=== PATIENT | male | born 1975 | race American Indian/Alaskan Native ===

== ENCOUNTER 2018-01-31 06:49 | Inpatient (IN) | payer OTHER ==
[2018-01-31] MEDS ORDERED: Ketorolac 30 MG/ML SDV IVPUSH ONE (08:30)
[2018-01-31] MEDS ORDERED: Sodium Chloride 0.9% 1,000 ML IV ONE (08:30)
--- NOTE | 2018-01-31 08:30 | EDM.PDOC ---
ED HPI GENERAL MEDICAL PROBLEM - General Chief Complaint: Abdominal Pain Stated Complaint: GALLBLADDER Time Seen by Provider: 01/31/18 08:17 - History of Present Illness INITIAL COMMENTS - FREE TEXT/NARRATIVE: HISTORY AND PHYSICAL: History of present illness: Patient's 43-year-old male presents with concern of right upper quadrant abdominal pain off and on for last several weeks worse with eating he was seen at another institution that had no ultrasound capabilities and was sent here. He 's had associated nausea no vomiting denies fever chills denies trauma or other concern Review of systems: As per history of present illness and below otherwise all systems reviewed and negative. Past medical history: As per history of present illness and as reviewed below otherwise noncontributory. Surgical history: As per history of present illness and as reviewed below otherwise noncontributory. Social history: No reported history of drug or alcohol abuse. Family history: As per history of present illness and as reviewed below otherwise noncontributory. Physical exam: HEENT: Atraumatic, normocephalic, pupils reactive, negative for conjunctival pallor or scleral icterus, mucous membranes moist, throat clear, neck supple, nontender, trachea midline. Lungs: Clear to auscultation, breath sounds equal bilaterally, chest nontender. Heart: S1S2, regular, negative for clicks, rubs, or JVD. Abdomen: Soft, nondistended, tenderness in the right upper quadrant to deep palpation with voluntary guarding no rebound. Negative for masses or hepatosplenomegaly. Negative for costovertebral tenderness. Pelvis: Stable nontender. Genitourinary: Deferred. Rectal: Deferred. Extremities: Atraumatic, negative for cords or calf pain. Neurovascular unremarkable. Neuro: Awake, alert, oriented. Cranial nerves II through XII unremarkable. Cerebellum unremarkable. Motor and sensory unremarkable throughout. Exam nonfocal. Diagnostics: CBC and chem were done prior institution and remarkable for a elevated white blood cell count of 15 chemistries were unremarkable UA was unremarkable liver function tests were normal Therapeutics: Normal saline 1 L bolus Toradol 30 mg IV Impression: #1 right upper quadrant abdominal pain etiology be determined Definitive disposition and diagnosis as appropriate pending reevaluation and review of above. right sided abd Pain Score (Numeric/FACES): 8 - Related Data Allergies Allergy/AdvReac Type Severity Reaction Status Date / Time No Known Allergies Allergy Verified 01/31/18 07:04 Home Meds: Home Meds . [No Known Home Meds] 01/31/18 [History] Past Medical History - Infectious Disease History Infectious Disease History: Reports: None - Past Surgical History GI Surgical History: Reports: Appendectomy Social & Family History - Family History Family Medical History: Noncontributory - Tobacco Use Smoking Status *Q: Never Smoker - Caffeine Use Caffeine Use: Reports: Coffee - Recreational Drug Use Recreational Drug Use: No ED ROS GENERAL - Review of Systems Review Of Systems: ROS reveals no pertinent complaints other than HPI. ED EXAM, GENERAL - Physical Exam Exam: See Below (See dictated) Course - Vital Signs Last Recorded V/S: Last Vital Signs Temp 36.2 C 01/31/18 07:05 Pulse 90 01/31/18 07:05 Resp 18 01/31/18 07:05 BP 139/88 01/31/18 07:05 Pulse Ox 98 01/31/18 07:05 - Orders/Labs/Meds Orders: Active Orders 24 hr Category Date Time Status CULTURE BLOOD [BC] Stat Lab 01/31/18 08:38 Ordered CULTURE BLOOD [BC] Stat Lab 01/31/18 08:38 Ordered Sodium Chloride 0.9% [Normal Saline] 1,000 ml Med 01/31/18 08:30 Active IV .Bolus cefOXitin [Mefoxin] 1 gm Med 01/31/18 08:38 Active Sodium Chloride 0.9% [Normal Saline] 50 ml IV ONETIME metroNIDAZOLE/Normal Saline [Flagyl 500 MG in NS 100 ML Med 01/31/18 08:38 Active ] 500 mg Premix Bag 1 bag IV ONETIME Blood Culture x2 Reflex Set [OM.PC] Stat Oth 01/31/18 08:38 Ordered Medication Orders Sodium Chloride (Normal Saline) 1,000 mls @ 999 mls/hr IV .Bolus ONE Stop: 01/31/18 09:30 Last Admin: 01/31/18 08:40 Dose: 999 mls/hr Cefoxitin Sodium 1 gm/ Sodium (Chloride) 50 mls @ 100 mls/hr IV ONETIME ONE Stop: 01/31/18 09:07 Metronidazole 500 mg/ Premix 100 mls @ 100 mls/hr IV ONETIME ONE Stop: 01/31/18 09:37 Labs: Laboratory Tests 01/31/18 Range/Units 07:25 Lipase 78 (73-393) U/L Meds: Medications Generic Name Dose Route Start Last Admin Trade Name Rocio PRN Reason Stop Dose Admin Sodium Chloride 1,000 mls @ 999 mls/hr 01/31/18 08:30 01/31/18 08:40 Normal Saline IV 01/31/18 09:30 999 mls/hr .Bolus ONE Administration Cefoxitin Sodium 1 gm/ Sodium 50 mls @ 100 mls/hr 01/31/18 08:38 Chloride IV 01/31/18 09:07 ONETIME ONE Metronidazole 500 mg/ Premix 100 mls @ 100 mls/hr 01/31/18 08:38 IV 01/31/18 09:37 ONETIME ONE Discontinued Medications Generic Name Dose Route Start Last Admin Trade Name Rocio PRN Reason Stop Dose Admin Ketorolac Tromethamine 30 mg 01/31/18 08:30 01/31/18 08:40 Toradol IVPUSH 01/31/18 08:31 30 mg ONETIME ONE Administration Departure - Departure Time of Disposition: 08:47 Disposition: Admitted As Inpatient 65 Condition: Good Clinical Impression: Cholecystitis - Discharge Information Referrals: PCP,None [Primary Care Provider] - Forms: ED Department Discharge - My Orders Last 24 Hours: My Active Orders 01/31/18 08:30 Sodium Chloride 0.9% [Normal Saline] 1,000 ml IV .Bolus 01/31/18 08:38 CULTURE BLOOD [BC] Stat CULTURE BLOOD [BC] Stat cefOXitin [Mefoxin] 1 gm Sodium Chloride 0.9% [Normal Saline] 50 ml IV ONETIME metroNIDAZOLE/Normal Saline [Flagyl 500 MG in NS 100 ML] 500 mg Premix Bag 1 bag IV ONETIME Blood Culture x2 Reflex Set [OM.PC] Stat - Assessment/Plan Last 24 Hours: My Active Orders 01/31/18 08:30 Sodium Chloride 0.9% [Normal Saline] 1,000 ml IV .Bolus 01/31/18 08:38 CULTURE BLOOD [BC] Stat CULTURE BLOOD [BC] Stat cefOXitin [Mefoxin] 1 gm Sodium Chloride 0.9% [Normal Saline] 50 ml IV ONETIME metroNIDAZOLE/Normal Saline [Flagyl 500 MG in NS 100 ML] 500 mg Premix Bag 1 bag IV ONETIME Blood Culture x2 Reflex Set [OM.PC] Stat
--- NOTE | 2018-01-31 08:30 | US ---
Upper abdominal sonogram Clinical history: Pain Comparison: None. Findings: Liver measures 17.78 cm and is echogenic consistent with a fatty liver. There is normal hep atopedal flow in the portal vein. The gallbladder demonstrates gallbladder wall edema with a calculus that shadows impacted in the neck of the gallbladder, nonmobile. This may be manifestation of evolving cholecystitis. Common bile duct is normal. Of note, the patient is tender on interrogation of the gallbladder a "positive Milan's s ign". Visualized portions of the pancreas are normal but is poorly seen because of bowel gas and ther efore incompletely evaluated Impression: Abnormal gallbladder with stone impacted in the neck of the gallbladder. This is likely t o be evolving cholecystitis. Fatty liver
[2018-01-31] MEDS ORDERED: metroNIDAZOLE/Normal Saline 500 MG in Premix Bag 1 BAG IV ONE (08:38)
[2018-01-31] MEDS ORDERED: cefOXitin 1 GM in Premix Bag 1 BAG IV SCH (09:15)
[2018-01-31] MEDS ORDERED: cefOXitin 1 GM in Premix Bag 1 BAG IV ONE (10:00)
--- NOTE | 2018-01-31 11:07 | PCM.HP ---
H&P History of Present Illness - General Date of Service: 01/31/18 Admit Problem/Dx: Admission Diagnosis/Problem Admission Diagnosis/Problem Cholecystitis Source of Information: Patient History Limitations: Reports: No Limitations - History of Present Illness Initial Comments - Free Text/Narative: 43M with no known past history that presented to the ER from outside ER secondary to RUQ pain that has been ongoing for 1 month intermittently now. Patient tells me that for the past month, he began to feel pain in his RUQ, nonradiating and was constant for an entire week. He had leftover amoxicillin at home from a dental infection so decided to take that and he thinks that helped. The pain was gone for about 2 weeks and then he noticed he would start feeling abdominal discomfort shortly after eating. Now since this past monday, he tells me that hes been having the same pain constantly and has been progressively worsening. He currently lives in [place] and is new to [facility], so he drove to the ER in [place] to have this addressed. Patient was then referred to [facility] given no ultrasound capabilities after noting at their facility to have elevated white count of 15,000. Currently, aside from the pain , he has no complaints. Denies headache, fever, nausea, vomiting, diarrhea, constipation. He does state that he had night sweats last night. [facility] Course: RUQ US - gallstone at the neck of the galbladder with evolving cholecystitis. 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 Goins consulted and made aware of the case right sided abd Pain Score (Numeric/FACES): 8 - Related Data Allergies/Adverse Reactions: Allergies Allergy/AdvReac Type Severity Reaction Status Date / Time No Known Allergies Allergy Verified 01/31/18 07:04 Home Medications: Home Meds . [No Known Home Meds] 01/31/18 [History] Past Medical History - Infectious Disease History Infectious Disease History: Reports: None - Past Surgical History GI Surgical History: Reports: Appendectomy Social & Family History - Family History Family Medical History: Noncontributory - Tobacco Use Smoking Status *Q: Never Smoker Second Hand Smoke Exposure: No - Caffeine Use Caffeine Use: Reports: Coffee, Soda - Recreational Drug Use Recreational Drug Use: No H&P Review of Systems - Review of Systems: Review Of Systems: See Below General: Reports: Night Sweats HEENT: Reports: No Symptoms Pulmonary: Reports: No Symptoms Cardiovascular: Reports: No Symptoms Gastrointestinal: Reports: Other (see HPI) Genitourinary: Reports: No Symptoms Musculoskeletal: Reports: No Symptoms Skin: Reports: No Symptoms Psychiatric: Reports: No Symptoms Neurological: Reports: No Symptoms Hematologic/Lymphatic: Reports: No Symptoms Immunologic: Reports: No Symptoms Exam - Exam Exam: See Below - Vital Signs Vital Signs: Last Vital Signs Temp 36.2 C 01/31/18 09:37 Pulse 90 01/31/18 09:37 Resp 18 01/31/18 09:37 BP 124/78 01/31/18 09:37 Pulse Ox 95 01/31/18 09:37 Weight: 65.408 kg - Exam General: Alert, Oriented, 4 HEENT: PERRLA, Hearing Intact, Mucosa Moist & [place], Nares Patent, Normal Nasal Septum, Posterior Pharynx Clear, Conjunctiva Clear, EOMI, EACs Clear, TMs Clear Neck: Supple, Trachea Midline, 2 Lungs: Clear to Auscultation, Normal Respiratory Effort Cardiovascular: Regular Rate, Regular Rhythm GI/Abdominal Exam: Normal Bowel Sounds, Other (RUQ tenderness to palpation + Milan) Back Exam: Normal Inspection, Full Range of Motion. No: CVA Tenderness (L), CVA Tenderness (R) Extremities: Normal Inspection, Normal Range of Motion, Non-Tender, No Pedal Edema, Normal Capillary Refill Peripheral Pulses: 2+: Dorsalis Pedis (L), Dorsalis Pedis (R) Skin: Warm, Dry, Intact Neurological: Cranial Nerves Intact, Reflexes Equal Bilateral Neuro Extensive - Mental Status: Alert, Oriented x3, Normal Mood/Affect, Normal Cognition, Memory Intact Neuro Extensive - Motor, Sensory, Reflexes: CN II-XII Intact Psychiatric: Alert, Normal Affect, Normal Mood - Patient Data Lab Results Last 24 hrs: Laboratory Results - last 24 hr 01/31/18 Range/Units 07:25 Lipase 78 (73-393) U/L Problem List Initiated/Reviewed/Updated: Yes Orders Last 24hrs: Active Orders 24 hr Category Date Time Status Patient Status [ADT] Stat ADT 01/31/18 08:49 Active Notify Provider Consults [RC] ASDIRECTED Care 01/31/18 08:52 Active Consult to Physician [CONS] Stat Cons 01/31/18 08:50 Active CULTURE BLOOD [BC] Stat Lab 01/31/18 08:50 Received CULTURE BLOOD [BC] Stat Lab 01/31/18 09:04 Received Blood Culture x2 Reflex Set [OM.PC] Stat Oth 01/31/18 08:38 Ordered Assessment/Plan Comment:: Assessment: #1. Acute calculous cholecystitis #2. Cholelithiasis #3. RUQ pain secondary to #1, #2 #4. Leukocytosis #5. Subjective fever #1. Admit to the floor for observation. SCD for DVT prophylaxis. Full code. Vital signs per floor routine. #2. NPO until seen by Dr. Goins, surgery to deem further management #3. Will start IV Ciprofloxacin, Flagyl for cholecystitis #4. Zofran 4mg IV PRN nausea #5. IV Morphine 2mg q2h PRN, pain. Patient received ketorolac in the ER and is currently pain controlled.
[2018-01-31] MEDS ORDERED: Ondansetron 4 MG/2 ML SDV IVPUSH PRN (11:15)
[2018-01-31] MEDS ORDERED: Morphine 2 MG/ML Syringe IVPUSH PRN (11:15)
[2018-01-31] MEDS: Ciprofloxacin in D5W 400 MG in Premix Bag 1 BAG IV SCH ×4 (11:58→22:32)
[2018-01-31] MEDS: metroNIDAZOLE/Normal Saline 500 MG in Premix Bag 1 BAG IV SCH ×3 (13:03→23:29)
--- NOTE | 2018-01-31 13:41 | PCM.CONS ---
H&P History of Present Illness - General Date of Service: 01/31/18 Admit Problem/Dx: Admission Diagnosis/Problem Admission Diagnosis/Problem Cholecystitis Source of Information: Patient History Limitations: Reports: No Limitations - History of Present Illness Initial Comments - Free Text/Narative: Patient is a 43-year-old gentleman with a 3 week history of abdominal pain with fatty food intolerance. His symptoms became progressively more severe this past Monday. He presented to the emergency room in [place], [place] this morning complaining of abdominal pain. He was found have a significant leukocytosis with a white count of 15,000. There was no elevation of his liver function tests or bilirubin. He was sent down to [place] for CT scan of the abdomen which does reveal cholecystitis with cholelithiasis. There is a strong family history of biliary tract disease on the maternal side of the family. Duration of Symptoms: Reports: Week(s):, Chronic, Getting Worse Location: Reports: Abdomen Quality: Reports: Ache, Throbbing Severity: Moderate Improves with: Reports: Rest Worsens with: Reports: None Context: Reports: Sick Contact Associated Symptoms: Reports: No Other Symptoms right sided abd Pain Score (Numeric/FACES): 8 - Related Data Allergies/Adverse Reactions: Allergies Allergy/AdvReac Type Severity Reaction Status Date / Time No Known Allergies Allergy Verified 01/31/18 07:04 Home Medications: Home Meds . [No Known Home Meds] 01/31/18 [History] Past Medical History - Infectious Disease History Infectious Disease History: Reports: None - Past Surgical History GI Surgical History: Reports: Appendectomy Social & Family History - Family History Family Medical History: Noncontributory - Tobacco Use Smoking Status *Q: Never Smoker Second Hand Smoke Exposure: No - Caffeine Use Caffeine Use: Reports: Coffee, Soda - Recreational Drug Use Recreational Drug Use: No H&P Review of Systems - Review of Systems: Review Of Systems: See Below General: Denies: Fever, Chills, Malaise HEENT: Reports: No Symptoms Pulmonary: Denies: Shortness of Breath, Wheezing Cardiovascular: Denies: Chest Pain, Palpitations Gastrointestinal: Reports: Abdominal Pain, Decreased Appetite, Other (fatty food intolerance). Denies: Black Stool, Bloody Stool, Constipation, Diarrhea, Difficulty Swallowing, Mucous in Stool, Nausea, Vomiting Genitourinary: Denies: Dysuria, Frequency, Burning Musculoskeletal: Reports: No Symptoms Skin: Denies: Cyanosis, Jaundice Psychiatric: Reports: No Symptoms Neurological: Reports: No Symptoms Hematologic/Lymphatic: Reports: No Symptoms Immunologic: Reports: No Symptoms Exam - Exam Exam: See Below - Vital Signs Vital Signs: Last Vital Signs Temp 98.4 F 01/31/18 11:15 Pulse 87 01/31/18 11:15 Resp 16 01/31/18 11:15 BP 117/74 01/31/18 11:15 Pulse Ox 94 L 01/31/18 11:15 Weight: 144 lb 3.2 oz - Exam General: Alert, Oriented, Cooperative, Mild Distress HEENT: Conjunctiva Clear, EACs Clear, EOMI, Hearing Intact. No: Scleral Icterus Neck: Supple, Trachea Midline Lungs: Clear to Auscultation, Normal Respiratory Effort. No: Wheezing Cardiovascular: Regular Rate, Regular Rhythm, Normal S1, Normal S2. No: Tachycardia, Diastolic Murmur GI/Abdominal Exam: Normal Bowel Sounds, Soft, No Organomegaly, No Distention, No Abnormal Bruit, No Mass, Tender (mild tenderness to deep palpation in the right upper quadrant. Gallbladder is not palpable.). No: Guarding, Rigid, Rebound (Male) Exam: No Hernia Rectal (Males) Exam: Deferred Back Exam: Normal Inspection, Full Range of Motion, Paraspinal Tenderness Extremities: Normal Range of Motion, No Pedal Edema, Normal Capillary Refill Peripheral Pulses: 4+: Posterior Tibial (L), Posterior Tibial (R), Dorsalis Pedis (L), Dorsalis Pedis (R) Skin: Warm, Dry, Intact Neurological: Cranial Nerves Intact Neuro Extensive - Mental Status: Alert, Oriented x3, Normal Mood/Affect Psychiatric: Alert, Normal Affect, Normal Mood - Patient Data Lab Results Last 24 hrs: Laboratory Results - last 24 hr 01/31/18 Range/Units 07:25 Lipase 78 (73-393) U/L Consult PN Assessment/Plan (1) Cholelithiasis and acute cholecystitis without obstruction SNOMED Code(s): 15385499 Code(s): K80.00 - CALCULUS OF GALLBLADDER W ACUTE CHOLECYST W/O OBSTRUCTION Priority: High Current Visit: Yes Problem List Initiated/Reviewed/Updated: Yes Plan: As the patient has been having waxing and waning symptoms for the last 3 weeks and a five-day history of progressive right upper quadrant discomfort. It would be best to try and cool him down with bowel rest, IV fluids and parenteral antibiotics. If his symptoms don't improve, he may well require emergent cholecystectomy, which most likely will require an open procedure. This has been carefully explained to the patient. He is willing to try a course of nonoperative therapy and interval cholecystectomy. He is from the [place] area. We did discuss the possibility if he improves of having this done back in [place] closer to his family. He is going to consider that option.
[2018-01-31] MEDS: Sodium Chloride 0.9% 1,000 ML IV SCH (18:49)
[2018-02-01] MEDS: metroNIDAZOLE/Normal Saline 500 MG in Premix Bag 1 BAG IV SCH ×3 (05:21→17:10)
[2018-02-01 05:52] LABS: CHLORIDE,CL 103 mmol/L (98-107); SODIUM,NA 138 mmol/L (136-148)
--- NOTE | 2018-02-01 08:22 | PCM.CONSN ---
- General Info Date of Service: 02/01/18 Admission Dx/Problem (Free Text): Admission Diagnosis/Problem Admission Diagnosis/Problem Cholecystitis Subjective Update: States he is feeling better today. Has not required analgesics since shift change last night. Rates pain a "5". Functional Status: Reports: Pain Controlled, Tolerating Diet, Ambulating, Urinating - Review of Systems General: Reports: Fever (Tmax 100.5). Denies: Weakness, Fatigue HEENT: Reports: No Symptoms Pulmonary: Denies: Shortness of Breath, Pleuritic Chest Pain, Cough Cardiovascular: Denies: Chest Pain, Dyspnea on Exertion Gastrointestinal: Reports: Abdominal Pain, Flatus. Denies: Constipation, Decreased Appetite, Diarrhea, Difficulty Swallowing, Hematochezia, Melena, Nausea, Vomiting Genitourinary: Reports: No Symptoms Musculoskeletal: Reports: No Symptoms Skin: Denies: Cyanosis, Jaundice, Mottled Neurological: Reports: No Symptoms Psychiatric: Reports: No Symptoms - Patient Data Vitals - Most Recent: Last Vital Signs Temp 99 F 02/01/18 03:00 Pulse 89 02/01/18 03:00 Resp 18 02/01/18 03:00 BP 119/72 02/01/18 03:00 Pulse Ox 96 02/01/18 03:00 Weight - Most Recent: 144 lb 3.2 oz I&O - Last 24 Hours: Intake & Output 01/31/18 02/01/18 02/01/18 19:59 03:59 11:59 Intake Total 2318 300 1300 Output Total 650 750 Balance 1668 300 550 Lab Results Last 24 Hours: Laboratory Results - last 24 hr 02/01/18 02/01/18 Range/Units 05:10 05:10 WBC 15.01 H (4.0-11.0) K/uL RBC 4.69 (4.50-5.90) M/uL Hgb 13.5 (13.0-17.0) g/dL Hct 40.9 (38.0-50.0) % MCV 87.2 (80.0-98.0) fL MCH 28.8 (27.0-32.0) pg MCHC 33.0 (31.0-37.0) g/dL RDW Std Deviation 42.8 (28.0-62.0) fl RDW Coeff of [place] 13 (11.0-15.0) % Plt Count 266 (150-400) K/uL MPV 10.10 (7.40-12.00) fL Neut % (Auto) 77.1 (48.0-80.0) % Lymph % (Auto) 11.2 L (16.0-40.0) % [place]aney % (Auto) 11.5 (0.0-15.0) % Eos % (Auto) 0.1 (0.0-7.0) % Baso % (Auto) 0.1 (0.0-1.5) % Neut # (Auto) 11.6 H (1.4-5.7) K/uL Lymph # (Auto) 1.7 (0.6-2.4) K/uL Taney # (Auto) 1.7 H (0.0-0.8) K/uL Eos # (Auto) 0.0 (0.0-0.7) K/uL Baso # (Auto) 0.0 (0.0-0.1) K/uL Nucleated RBC % 0.0 /100WBC Nucleated RBCs # 0 K/uL Sodium 138 (136-148) mmol/L Potassium 4.0 (3.5-5.1) mmol/L Chloride 103 (98-107) mmol/L Carbon Dioxide 24.4 (21.0-32.0) mmol/L BUN 14 (7.0-18.0) mg/dL Creatinine 1.1 (0.8-1.3) mg/dL Est Cr Clr Drug Dosing 79.28 mL/min Estimated GFR (MDRD) > 60.0 ml/min Glucose 114 H (74-106) mg/dL Calcium 8.1 L (8.5-10.1) mg/dL Total Bilirubin 1.1 H (0.2-1.0) mg/dL AST 12 L (15-37) IU/L ALT 10 L (14-63) IU/L Alkaline Phosphatase 63 (46-116) U/L Total Protein 7.2 (6.4-8.2) g/dL Albumin 3.2 L (3.4-5.0) g/dL Globulin 4.0 H (2.0-3.5) g/dL Albumin/Globulin Ratio 0.8 L (1.3-2.8) Med Orders - Current: Current Medications Sodium Chloride (Normal Saline) 1,000 mls @ 75 mls/hr IV ASDIRECTED [facility] Last Admin: 01/31/18 18:49 Dose: 75 mls/hr Ciprofloxacin/Dextrose 400 mg/ (Premix) 200 mls @ 200 mls/hr IV Q12H [facility] Last Admin: 01/31/18 22:32 Dose: 200 mls/hr Metronidazole 500 mg/ Premix 100 mls @ 100 mls/hr IV QID [facility] Last Admin: 02/01/18 05:21 Dose: 100 mls/hr Ibuprofen (Motrin) 400 mg PO Q6H PRN PRN Reason: Pain (mild 1-3) Morphine Sulfate (Morphine) 2 mg IVPUSH Q2H PRN PRN Reason: Pain (severe 7-10) Stop: 02/01/18 11:16 Last Admin: 01/31/18 19:18 Dose: 2 mg Ondansetron HCl (Zofran) 4 mg IVPUSH Q4H PRN PRN Reason: Nausea Discontinued Medications Sodium Chloride (Normal Saline) 1,000 mls @ 999 mls/hr IV .Bolus ONE Stop: 01/31/18 09:30 Last Admin: 01/31/18 08:40 Dose: 999 mls/hr Cefoxitin Sodium 1 gm/ Sodium (Chloride) 50 mls @ 100 mls/hr IV ONETIME ONE Stop: 01/31/18 09:07 Last Admin: 01/31/18 11:22 Dose: Not Given Metronidazole 500 mg/ Premix 100 mls @ 100 mls/hr IV ONETIME ONE Stop: 01/31/18 09:37 Last Admin: 01/31/18 09:09 Dose: 100 mls/hr Cefoxitin Sodium 1 gm/ Premix 50 mls @ 100 mls/hr IV ONETIME [facility] Cefoxitin Sodium 1 gm/ Premix 50 mls @ 100 mls/hr IV ONETIME ONE Stop: 01/31/18 10:29 Last Admin: 01/31/18 10:27 Dose: 100 mls/hr Ketorolac Tromethamine (Toradol) 30 mg IVPUSH ONETIME ONE Stop: 01/31/18 08:31 Last Admin: 01/31/18 08:40 Dose: 30 mg - Exam General: Alert, Oriented, Cooperative, No Acute Distress HEENT: Pupils Equal, Pupils Reactive, EOMI. No: Scleral Icterus Neck: Supple Lungs: Clear to Auscultation, Normal Respiratory Effort. No: Wheezing Cardiovascular: Regular Rate, Regular Rhythm, No Murmurs. No: Tachycardia GI/Abdominal Exam: Normal Bowel Sounds, Soft, No Distention, No Mass, Tender ( slightly tender to palpation in the RUQ. Gallbladder is not palpable.). No: Guarding, Rigid, Rebound (Male) Exam: No Hernia Back Exam: Normal Inspection, Full Range of Motion Extremities: Normal Inspection, No Pedal Edema, Normal Capillary Refill Peripheral Pulses: 4+: Posterior Tibial (L), Posterior Tibial (R), Dorsalis Pedis (L), Dorsalis Pedis (R) Skin: Warm, Dry, Intact Neurological: No New Focal Deficit, Normal Gait Psy/Mental Status: Alert, Normal Affect, Normal Mood Consult PN Assessment/Plan (1) Cholelithiasis and acute cholecystitis without obstruction SNOMED Code(s): 46123688 Code(s): K80.00 - CALCULUS OF GALLBLADDER W ACUTE CHOLECYST W/O OBSTRUCTION Priority: High Current Visit: Yes Problem List Initiated/Reviewed/Updated: Yes Plan: Note WBC still elevated at 15K. Clinically patient has improved. Would consider advancing to a low fat diet. Continue parenteral antibiotics until WBC resolves, then home with oral antibiotics to complete 10 days of treatment. Recommend interval cholecystectomy in about 6 weeks to improve chances for a laparoscopic approach. Also discussed the possibility of doing this at his home in [place] where his family lives.
--- NOTE | 2018-02-01 08:40 | PCM.PN ---
- General Info Date of Service: 02/01/18 Subjective Update: He states that he feels better. He has been able to tolerate a full liquid diet. Rates the pain at a 5, not requiring significant amount of pain medications. No other complaints. - Review of Systems General: Reports: Other (see hpi) - Patient Data Vitals - Most Recent: Last Vital Signs Temp 37.2 C 02/01/18 03:00 Pulse 89 02/01/18 03:00 Resp 18 02/01/18 03:00 BP 119/72 02/01/18 03:00 Pulse Ox 96 02/01/18 03:00 Weight - Most Recent: 65.408 kg I&O - Last 24 Hours: Intake & Output 01/31/18 02/01/18 02/01/18 22:59 06:59 14:59 Intake Total 2318 1600 Output Total 650 750 Balance 1668 850 Lab Results Last 24 Hours: Laboratory Results - last 24 hr 02/01/18 02/01/18 Range/Units 05:10 05:10 WBC 15.01 H (4.0-11.0) K/uL RBC 4.69 (4.50-5.90) M/uL Hgb 13.5 (13.0-17.0) g/dL Hct 40.9 (38.0-50.0) % MCV 87.2 (80.0-98.0) fL MCH 28.8 (27.0-32.0) pg MCHC 33.0 (31.0-37.0) g/dL RDW Std Deviation 42.8 (28.0-62.0) fl RDW Coeff of [place]hely 13 (11.0-15.0) % Plt Count 266 (150-400) K/uL MPV 10.10 (7.40-12.00) fL Neut % (Auto) 77.1 (48.0-80.0) % Lymph % (Auto) 11.2 L (16.0-40.0) % [place] % (Auto) 11.5 (0.0-15.0) % Eos % (Auto) 0.1 (0.0-7.0) % Baso % (Auto) 0.1 (0.0-1.5) % Neut # (Auto) 11.6 H (1.4-5.7) K/uL Lymph # (Auto) 1.7 (0.6-2.4) K/uL [place] # (Auto) 1.7 H (0.0-0.8) K/uL Eos # (Auto) 0.0 (0.0-0.7) K/uL Baso # (Auto) 0.0 (0.0-0.1) K/uL Nucleated RBC % 0.0 /100WBC Nucleated RBCs # 0 K/uL Sodium 138 (136-148) mmol/L Potassium 4.0 (3.5-5.1) mmol/L Chloride 103 (98-107) mmol/L Carbon Dioxide 24.4 (21.0-32.0) mmol/L BUN 14 (7.0-18.0) mg/dL Creatinine 1.1 (0.8-1.3) mg/dL Est Cr Clr Drug Dosing 79.28 mL/min Estimated GFR (MDRD) > 60.0 ml/min Glucose 114 H (74-106) mg/dL Calcium 8.1 L (8.5-10.1) mg/dL Total Bilirubin 1.1 H (0.2-1.0) mg/dL AST 12 L (15-37) IU/L ALT 10 L (14-63) IU/L Alkaline Phosphatase 63 (46-116) U/L Total Protein 7.2 (6.4-8.2) g/dL Albumin 3.2 L (3.4-5.0) g/dL Globulin 4.0 H (2.0-3.5) g/dL Albumin/Globulin Ratio 0.8 L (1.3-2.8) Med Orders - Current: Current Medications Sodium Chloride (Normal Saline) 1,000 mls @ 75 mls/hr IV ASDIRECTED [facility] Last Admin: 01/31/18 18:49 Dose: 75 mls/hr Ciprofloxacin/Dextrose 400 mg/ (Premix) 200 mls @ 200 mls/hr IV Q12H [facility] Last Admin: 01/31/18 22:32 Dose: 200 mls/hr Metronidazole 500 mg/ Premix 100 mls @ 100 mls/hr IV QID [facility] Last Admin: 02/01/18 05:21 Dose: 100 mls/hr Ibuprofen (Motrin) 400 mg PO Q6H PRN PRN Reason: Pain (mild 1-3) Morphine Sulfate (Morphine) 2 mg IVPUSH Q2H PRN PRN Reason: Pain (severe 7-10) Stop: 02/01/18 11:16 Last Admin: 01/31/18 19:18 Dose: 2 mg Ondansetron HCl (Zofran) 4 mg IVPUSH Q4H PRN PRN Reason: Nausea Discontinued Medications Sodium Chloride (Normal Saline) 1,000 mls @ 999 mls/hr IV .Bolus ONE Stop: 01/31/18 09:30 Last Admin: 01/31/18 08:40 Dose: 999 mls/hr Cefoxitin Sodium 1 gm/ Sodium (Chloride) 50 mls @ 100 mls/hr IV ONETIME ONE Stop: 01/31/18 09:07 Last Admin: 01/31/18 11:22 Dose: Not Given Metronidazole 500 mg/ Premix 100 mls @ 100 mls/hr IV ONETIME ONE Stop: 01/31/18 09:37 Last Admin: 01/31/18 09:09 Dose: 100 mls/hr Cefoxitin Sodium 1 gm/ Premix 50 mls @ 100 mls/hr IV ONETIME YESSI Cefoxitin Sodium 1 gm/ Premix 50 mls @ 100 mls/hr IV ONETIME ONE Stop: 01/31/18 10:29 Last Admin: 01/31/18 10:27 Dose: 100 mls/hr Ketorolac Tromethamine (Toradol) 30 mg IVPUSH ONETIME ONE Stop: 01/31/18 08:31 Last Admin: 01/31/18 08:40 Dose: 30 mg - Exam General: Alert, Oriented HEENT: EOMI, Mucous Membr. Moist/[place] Neck: Supple Lungs: Clear to Auscultation, Normal Respiratory Effort Cardiovascular: Regular Rate, Regular Rhythm GI/Abdominal Exam: Normal Bowel Sounds, Soft, Tender (RUQ tenderness) Back Exam: Normal Inspection, Full Range of Motion. No: CVA Tenderness (L), CVA Tenderness (R) Extremities: Normal Inspection, Normal Range of Motion, Non-Tender, No Pedal Edema, Normal Capillary Refill Peripheral Pulses: 2+: Dorsalis Pedis (L), Dorsalis Pedis (R) Skin: Warm, Dry Psy/Mental Status: Alert, Normal Affect, Normal Mood - Problem List Review Problem List Initiated/Reviewed/Updated: Yes - My Orders Last 24 Hours: My Active Orders 01/31/18 11:15 Oxygen Therapy [RC] PRN Up ad Wendi [RC] ASDIRECTED Vital Signs [RC] Q4H Ibuprofen [Motrin] 400 mg PO Q6H PRN Morphine 2 mg IVPUSH Q2H PRN Ondansetron [Zofran] 4 mg IVPUSH Q4H PRN Sodium Chloride 0.9% [Normal Saline] 1,000 ml IV ASDIRECTED Sequential Compression Device [OM.PC] Per Unit Routine Resuscitation Status Routine 01/31/18 11:30 Ciprofloxacin in D5W [Cipro in D5W 400 MG/200 ML] 400 mg Premix Bag 1 bag IV Q12H 01/31/18 12:00 metroNIDAZOLE/Normal Saline [Flagyl 500 MG in NS 100 ML] 500 mg Premix Bag 1 bag IV QID 01/31/18 Lunch Full Liquid Diet [DIET] 02/01/18 Lunch Low Fat Diet [DIET] - Plan Plan:: Assessment: #1. Acute calculous cholecystitis #2. Cholelithiasis #3. RUQ pain secondary to #1, #2 #4. Leukocytosis #5. Fever - resolved #1. Given that his WBC count has not changed, we will continue IV antibiotics today #2. Transition to a low fat diet #3. Continue IV fluids #3. Surgery has seen the patient this AM, who recommend continued IV antibiotics , sending home in the near future on PO antibiotics, and elective lap antonio 6 weeks in the future if possible. Patient tells me that his parents are coming to town today and they will decide whether he wants to do his surgery here or back home in [place], [place].
[2018-02-01] MEDS: Sodium Chloride 0.9% 1,000 ML IV SCH ×2 (09:15→22:56)
[2018-02-01] MEDS: Ciprofloxacin in D5W 400 MG in Premix Bag 1 BAG IV SCH ×4 (10:38→22:53)
[2018-02-01] MEDS: Ibuprofen 400 MG Tab PO PRN (17:18)
[2018-02-02] MEDS: metroNIDAZOLE/Normal Saline 500 MG in Premix Bag 1 BAG IV SCH ×2 (00:26→05:14)
[2018-02-02 06:35] LABS: CHLORIDE,CL 107 mmol/L (98-107); SODIUM,NA 140 mmol/L (136-148)
[2018-02-02] MEDS: Ibuprofen 400 MG Tab PO PRN (08:04)
--- NOTE | 2018-02-02 09:40 | PCM.PN ---
- General Info Date of Service: 02/02/18 Subjective Update: States that he feels about the same. Tender abdomen to palpation but otherwise has no pain. Has been tolerating a low fat diet with no pain. WBC count has not decreased. During rounds, he stated that he felt clammy, vital signs rechecked were normal, afebrile. No nausea ,vomiting - Review of Systems General: Reports: Other (see hpi) - Patient Data Vitals - Most Recent: Last Vital Signs Temp 37.3 C 02/02/18 07:15 Pulse 76 02/02/18 03:46 Resp 18 02/02/18 07:15 BP 114/78 02/02/18 07:15 Pulse Ox 95 02/02/18 07:15 Weight - Most Recent: 65.408 kg I&O - Last 24 Hours: Intake & Output 02/01/18 02/02/18 02/02/18 22:59 06:59 14:59 Intake Total 2869 950 Output Total 1825 1250 Balance 1044 -300 Lab Results Last 24 Hours: Laboratory Results - last 24 hr 02/02/18 02/02/18 Range/Units 05:15 05:15 WBC 15.69 H (4.0-11.0) K/uL RBC 4.64 (4.50-5.90) M/uL Hgb 13.5 (13.0-17.0) g/dL Hct 40.4 (38.0-50.0) % MCV 87.1 (80.0-98.0) fL MCH 29.1 (27.0-32.0) pg MCHC 33.4 (31.0-37.0) g/dL RDW Std Deviation 42.2 (28.0-62.0) fl RDW Coeff of [place] 13 (11.0-15.0) % Plt Count 248 (150-400) K/uL MPV 10.20 (7.40-12.00) fL Neut % (Auto) 81.1 H (48.0-80.0) % Lymph % (Auto) 6.8 L (16.0-40.0) % [place] % (Auto) 11.6 (0.0-15.0) % Eos % (Auto) 0.4 (0.0-7.0) % Baso % (Auto) 0.1 (0.0-1.5) % Neut # (Auto) 12.7 H (1.4-5.7) K/uL Lymph # (Auto) 1.1 (0.6-2.4) K/uL [place] # (Auto) 1.8 H (0.0-0.8) K/uL Eos # (Auto) 0.1 (0.0-0.7) K/uL Baso # (Auto) 0.0 (0.0-0.1) K/uL Nucleated RBC % 0.0 /100WBC Nucleated RBCs # 0 K/uL Sodium 140 (136-148) mmol/L Potassium 4.4 (3.5-5.1) mmol/L Chloride 107 (98-107) mmol/L Carbon Dioxide 25.4 (21.0-32.0) mmol/L BUN 15 (7.0-18.0) mg/dL Creatinine 1.0 (0.8-1.3) mg/dL Est Cr Clr Drug Dosing 87.21 mL/min Estimated GFR (MDRD) > 60.0 ml/min Glucose 107 H (74-106) mg/dL Calcium 8.1 L (8.5-10.1) mg/dL Alvin Results Last 24 Hours: Microbiology 01/31/18 09:04 Aerobic Blood Culture - Preliminary Blood - Venous - Lab Draw NO GROWTH AFTER 2 DAYS Anaerobic Blood Culture - Preliminary NO GROWTH AFTER 2 DAYS 01/31/18 08:50 Aerobic Blood Culture - Preliminary Blood - Venous NO GROWTH AFTER 2 DAYS Anaerobic Blood Culture - Preliminary NO GROWTH AFTER 2 DAYS Med Orders - Current: Current Medications Sodium Chloride (Normal Saline) 1,000 mls @ 100 mls/hr IV ASDIRECTED ON LICENSE OF [facility] Last Infusion: 02/02/18 08:05 Dose: 100 mls/hr Ciprofloxacin/Dextrose 400 mg/ (Premix) 200 mls @ 200 mls/hr IV Q12H ON LICENSE OF [facility] Last Admin: 02/01/18 22:53 Dose: 200 mls/hr Metronidazole 500 mg/ Premix 100 mls @ 100 mls/hr IV QID ON LICENSE OF [facility] Last Admin: 02/02/18 05:14 Dose: 100 mls/hr Ibuprofen (Motrin) 400 mg PO Q6H PRN PRN Reason: Pain (mild 1-3) Last Admin: 02/02/18 08:04 Dose: 400 mg Ondansetron HCl (Zofran) 4 mg IVPUSH Q4H PRN PRN Reason: Nausea Discontinued Medications Sodium Chloride (Normal Saline) 1,000 mls @ 999 mls/hr IV .Bolus ONE Stop: 01/31/18 09:30 Last Admin: 01/31/18 08:40 Dose: 999 mls/hr Cefoxitin Sodium 1 gm/ Sodium (Chloride) 50 mls @ 100 mls/hr IV ONETIME ONE Stop: 01/31/18 09:07 Last Admin: 01/31/18 11:22 Dose: Not Given Metronidazole 500 mg/ Premix 100 mls @ 100 mls/hr IV ONETIME ONE Stop: 01/31/18 09:37 Last Admin: 01/31/18 09:09 Dose: 100 mls/hr Cefoxitin Sodium 1 gm/ Premix 50 mls @ 100 mls/hr IV ONETIME YESSI Cefoxitin Sodium 1 gm/ Premix 50 mls @ 100 mls/hr IV ONETIME ONE Stop: 01/31/18 10:29 Last Admin: 01/31/18 10:27 Dose: 100 mls/hr Ketorolac Tromethamine (Toradol) 30 mg IVPUSH ONETIME ONE Stop: 01/31/18 08:31 Last Admin: 01/31/18 08:40 Dose: 30 mg Morphine Sulfate (Morphine) 2 mg IVPUSH Q2H PRN PRN Reason: Pain (severe 7-10) Stop: 02/01/18 11:16 Last Admin: 01/31/18 19:18 Dose: 2 mg - Exam General: Alert, Oriented, Cooperative Lungs: Clear to Auscultation, Normal Respiratory Effort Cardiovascular: Regular Rate, Regular Rhythm GI/Abdominal Exam: Normal Bowel Sounds, Soft, Tender Back Exam: Normal Inspection, Full Range of Motion Extremities: Normal Inspection, Normal Range of Motion, Non-Tender, No Pedal Edema, Normal Capillary Refill Psy/Mental Status: Alert, Normal Affect, Normal Mood - Problem List Review Problem List Initiated/Reviewed/Updated: Yes - My Orders Last 24 Hours: My Active Orders 02/01/18 Lunch Low Fat Diet [DIET] - Plan Plan:: Assessment: #1. Acute calculous cholecystitis #2. Cholelithiasis #3. RUQ pain secondary to #1, #2 #4. Leukocytosis #5. Fever - resolved #1. Given that his WBC count has not changed, we will continue IV antibiotics today. Will wait for surgery to assess patient and determine management. #2. Continue IV fluids #3. Patient states that his parents have come by from out of town and they have decided that if possible, they want to do the surgery in their hometown. However , with the WBC count not improving, surgery does need to come by to assess what the next best step is. I will touch base with surgery today. Patient agrees to the plan.
[2018-02-02] MEDS: Ciprofloxacin in D5W 400 MG in Premix Bag 1 BAG IV SCH ×2 (10:32)
[2018-02-02] MEDS: Piperacillin/Tazobactam 3.375 GM in Sodium Chloride 0.9% 50 ML IV SCH ×3 (11:38→23:14)
--- NOTE | 2018-02-02 11:57 | PCM.CONSN ---
- General Info Date of Service: 02/02/18 Admission Dx/Problem (Free Text): Cholecystitis w/ cholelithiasis Functional Status: Reports: Pain Controlled, Tolerating Diet, Ambulating, Urinating. Denies: New Symptoms - Review of Systems General: Denies: Fever, Weakness, Fatigue HEENT: Reports: No Symptoms Pulmonary: Denies: Shortness of Breath, Cough Cardiovascular: Reports: No Symptoms Gastrointestinal: Reports: Abdominal Pain (RUQ but improving). Denies: Constipation, Decreased Appetite, Diarrhea, Difficulty Swallowing, Nausea, Vomiting Genitourinary: Reports: No Symptoms Musculoskeletal: Reports: No Symptoms Skin: Denies: Jaundice Neurological: Reports: No Symptoms Psychiatric: Reports: No Symptoms - Patient Data Vitals - Most Recent: Last Vital Signs Temp 99.1 F 02/02/18 07:15 Pulse 76 02/02/18 03:46 Resp 18 02/02/18 07:15 BP 114/78 02/02/18 07:15 Pulse Ox 95 02/02/18 07:15 Weight - Most Recent: 144 lb 3.2 oz I&O - Last 24 Hours: Intake & Output 02/01/18 02/02/18 02/02/18 19:59 03:59 11:59 Intake Total 1669 1300 1100 Output Total 1825 1250 Balance -156 1300 -150 Lab Results Last 24 Hours: Laboratory Results - last 24 hr 02/02/18 02/02/18 Range/Units 05:15 05:15 WBC 15.69 H (4.0-11.0) K/uL RBC 4.64 (4.50-5.90) M/uL Hgb 13.5 (13.0-17.0) g/dL Hct 40.4 (38.0-50.0) % MCV 87.1 (80.0-98.0) fL MCH 29.1 (27.0-32.0) pg MCHC 33.4 (31.0-37.0) g/dL RDW Std Deviation 42.2 (28.0-62.0) fl RDW Coeff of [place] 13 (11.0-15.0) % Plt Count 248 (150-400) K/uL MPV 10.20 (7.40-12.00) fL Neut % (Auto) 81.1 H (48.0-80.0) % Lymph % (Auto) 6.8 L (16.0-40.0) % [place] % (Auto) 11.6 (0.0-15.0) % Eos % (Auto) 0.4 (0.0-7.0) % Baso % (Auto) 0.1 (0.0-1.5) % Neut # (Auto) 12.7 H (1.4-5.7) K/uL Lymph # (Auto) 1.1 (0.6-2.4) K/uL [place] # (Auto) 1.8 H (0.0-0.8) K/uL Eos # (Auto) 0.1 (0.0-0.7) K/uL Baso # (Auto) 0.0 (0.0-0.1) K/uL Nucleated RBC % 0.0 /100WBC Nucleated RBCs # 0 K/uL Sodium 140 (136-148) mmol/L Potassium 4.4 (3.5-5.1) mmol/L Chloride 107 (98-107) mmol/L Carbon Dioxide 25.4 (21.0-32.0) mmol/L BUN 15 (7.0-18.0) mg/dL Creatinine 1.0 (0.8-1.3) mg/dL Est Cr Clr Drug Dosing 87.21 mL/min Estimated GFR (MDRD) > 60.0 ml/min Glucose 107 H (74-106) mg/dL Calcium 8.1 L (8.5-10.1) mg/dL Alvin Results Last 24 Hours: Microbiology 01/31/18 09:04 Aerobic Blood Culture - Preliminary Blood - Venous - Lab Draw NO GROWTH AFTER 2 DAYS Anaerobic Blood Culture - Preliminary NO GROWTH AFTER 2 DAYS 01/31/18 08:50 Aerobic Blood Culture - Preliminary Blood - Venous NO GROWTH AFTER 2 DAYS Anaerobic Blood Culture - Preliminary NO GROWTH AFTER 2 DAYS Med Orders - Current: Current Medications Sodium Chloride (Normal Saline) 1,000 mls @ 100 mls/hr IV ASDIRECTED YESSI Last Infusion: 02/02/18 08:05 Dose: 100 mls/hr Piperacillin Sod/Tazobactam (Sod 3.375 gm/ Sodium Chloride) 50 mls @ 100 mls/ hr IV Q6H [facility]ESS[facility] Last Admin: 02/02/18 11:38 Dose: 100 mls/hr Ondansetron HCl (Zofran) 4 mg IVPUSH Q4H PRN PRN Reason: Nausea Discontinued Medications Sodium Chloride (Normal Saline) 1,000 mls @ 999 mls/hr IV .Bolus ONE Stop: 01/31/18 09:30 Last Admin: 01/31/18 08:40 Dose: 999 mls/hr Cefoxitin Sodium 1 gm/ Sodium (Chloride) 50 mls @ 100 mls/hr IV ONETIME ONE Stop: 01/31/18 09:07 Last Admin: 01/31/18 11:22 Dose: Not Given Metronidazole 500 mg/ Premix 100 mls @ 100 mls/hr IV ONETIME ONE Stop: 01/31/18 09:37 Last Admin: 01/31/18 09:09 Dose: 100 mls/hr Cefoxitin Sodium 1 gm/ Premix 50 mls @ 100 mls/hr IV ONETIME YESSI Cefoxitin Sodium 1 gm/ Premix 50 mls @ 100 mls/hr IV ONETIME ONE Stop: 01/31/18 10:29 Last Admin: 01/31/18 10:27 Dose: 100 mls/hr Ciprofloxacin/Dextrose 400 mg/ (Premix) 200 mls @ 200 mls/hr IV Q12H [facility] Last Admin: 02/02/18 10:32 Dose: 200 mls/hr Metronidazole 500 mg/ Premix 100 mls @ 100 mls/hr IV QID YESSI Last Admin: 02/02/18 05:14 Dose: 100 mls/hr Ibuprofen (Motrin) 400 mg PO Q6H PRN PRN Reason: Pain (mild 1-3) Last Admin: 02/02/18 08:04 Dose: 400 mg Ketorolac Tromethamine (Toradol) 30 mg IVPUSH ONETIME ONE Stop: 01/31/18 08:31 Last Admin: 01/31/18 08:40 Dose: 30 mg Morphine Sulfate (Morphine) 2 mg IVPUSH Q2H PRN PRN Reason: Pain (severe 7-10) Stop: 02/01/18 11:16 Last Admin: 01/31/18 19:18 Dose: 2 mg - Exam General: Alert, Oriented, No Acute Distress HEENT: Pupils Equal, Pupils Reactive, EOMI. No: Scleral Icterus Neck: Supple Lungs: Clear to Auscultation, Normal Respiratory Effort Cardiovascular: Regular Rate, Regular Rhythm GI/Abdominal Exam: Normal Bowel Sounds, Soft, Non-Tender, No Mass (Male) Exam: No Hernia, Normal Inspection, Normal Prostate, Circumcised Back Exam: Normal Inspection, Full Range of Motion Extremities: Normal Inspection, Normal Range of Motion, Non-Tender, No Pedal Edema, Normal Capillary Refill Skin: Warm, Dry, Intact Neurological: No New Focal Deficit Psy/Mental Status: Alert, Normal Affect, Normal Mood Consult PN Assessment/Plan (1) Cholelithiasis and acute cholecystitis without obstruction SNOMED Code(s): 68175834 Code(s): K80.00 - CALCULUS OF GALLBLADDER W ACUTE CHOLECYST W/O OBSTRUCTION Priority: High Current Visit: Yes Problem List Initiated/Reviewed/Updated: Yes Plan: Clinically patient is doing very well. Still no improvement in WBC. Patient rates pain a "3-4". Note antibiotics are being switched to Zosyn. At this point, I would favor continued antibiotic therapy and interval cholecystectomy in 6-8 weeks. Again, patient can decide if he wants to return home for his cholecystectomy and recuperation or have it done here in [place].
[2018-02-02] MEDS: Sodium Chloride 0.9% 1,000 ML IV SCH (15:10)
[2018-02-02] MEDS ORDERED: Ibuprofen 400 MG Tab PO PRN (18:34)
[2018-02-03] MEDS: Sodium Chloride 0.9% 1,000 ML IV SCH ×3 (01:48→23:57)
[2018-02-03] MEDS: Piperacillin/Tazobactam 3.375 GM in Sodium Chloride 0.9% 50 ML IV SCH ×4 (04:05→22:23)
--- NOTE | 2018-02-03 07:40 | PCM.CONSN ---
- General Info Date of Service: 02/03/18 Admission Dx/Problem (Free Text): Cholecystitis w/ cholelithiasis Functional Status: Reports: Pain Controlled, Ambulating, Urinating. Denies: New Symptoms - Review of Systems General: Reports: Fever (Tmax 99.9). Denies: Malaise, Chills, Night Sweats HEENT: Reports: No Symptoms Pulmonary: Denies: Shortness of Breath, Cough Cardiovascular: Denies: Chest Pain Gastrointestinal: Reports: Flatus. Denies: Abdominal Pain, Constipation, Diarrhea, Difficulty Swallowing, Nausea, Vomiting Genitourinary: Reports: No Symptoms Musculoskeletal: Reports: No Symptoms Skin: Reports: No Symptoms Neurological: Reports: No Symptoms Psychiatric: Reports: No Symptoms - Patient Data Vitals - Most Recent: Last Vital Signs Temp 98 F 02/03/18 04:00 Pulse 87 02/03/18 04:00 Resp 17 02/03/18 04:00 BP 113/68 02/03/18 04:00 Pulse Ox 96 02/03/18 04:00 Weight - Most Recent: 144 lb 3.2 oz I&O - Last 24 Hours: Intake & Output 02/02/18 02/03/18 02/03/18 19:59 03:59 11:59 Intake Total 1547 50 1981 Output Total 1410 1275 Balance 137 50 706 Lab Results Last 24 Hours: Laboratory Results - last 24 hr 02/03/18 Range/Units 05:44 WBC 15.24 H (4.0-11.0) K/uL RBC 4.55 (4.50-5.90) M/uL Hgb 13.3 (13.0-17.0) g/dL Hct 39.3 (38.0-50.0) % MCV 86.4 (80.0-98.0) fL MCH 29.2 (27.0-32.0) pg MCHC 33.8 (31.0-37.0) g/dL RDW Std Deviation 41.5 (28.0-62.0) fl RDW Coeff of [place] 13 (11.0-15.0) % Plt Count 299 (150-400) K/uL MPV 10.20 (7.40-12.00) fL Neut % (Auto) 81.6 H (48.0-80.0) % Lymph % (Auto) 8.1 L (16.0-40.0) % [place] % (Auto) 9.4 (0.0-15.0) % Eos % (Auto) 0.8 (0.0-7.0) % Baso % (Auto) 0.1 (0.0-1.5) % Neut # (Auto) 12.4 H (1.4-5.7) K/uL Lymph # (Auto) 1.2 (0.6-2.4) K/uL [place] # (Auto) 1.4 H (0.0-0.8) K/uL Eos # (Auto) 0.1 (0.0-0.7) K/uL Baso # (Auto) 0.0 (0.0-0.1) K/uL Nucleated RBC % 0.0 /100WBC Nucleated RBCs # 0 K/uL Alvin Results Last 24 Hours: Microbiology 01/31/18 09:04 Aerobic Blood Culture - Preliminary Blood - Venous - Lab Draw NO GROWTH AFTER 2 DAYS Anaerobic Blood Culture - Preliminary NO GROWTH AFTER 2 DAYS 01/31/18 08:50 Aerobic Blood Culture - Preliminary Blood - Venous NO GROWTH AFTER 2 DAYS Anaerobic Blood Culture - Preliminary NO GROWTH AFTER 2 DAYS Med Orders - Current: Current Medications Sodium Chloride (Normal Saline) 1,000 mls @ 100 mls/hr IV ASDIRECTED [facility] Last Admin: 02/03/18 01:48 Dose: 100 mls/hr Piperacillin Sod/Tazobactam (Sod 3.375 gm/ Sodium Chloride) 50 mls @ 100 mls/ hr IV Q6H [facility] Last Admin: 02/03/18 04:05 Dose: 100 mls/hr Ibuprofen (Motrin) 400 mg PO Q6H PRN PRN Reason: Pain Last Admin: 02/02/18 20:43 Dose: 400 mg Ondansetron HCl (Zofran) 4 mg IVPUSH Q4H PRN PRN Reason: Nausea Discontinued Medications Sodium Chloride (Normal Saline) 1,000 mls @ 999 mls/hr IV .Bolus ONE Stop: 01/31/18 09:30 Last Admin: 01/31/18 08:40 Dose: 999 mls/hr Cefoxitin Sodium 1 gm/ Sodium (Chloride) 50 mls @ 100 mls/hr IV ONETIME ONE Stop: 01/31/18 09:07 Last Admin: 01/31/18 11:22 Dose: Not Given Metronidazole 500 mg/ Premix 100 mls @ 100 mls/hr IV ONETIME ONE Stop: 01/31/18 09:37 Last Admin: 01/31/18 09:09 Dose: 100 mls/hr Cefoxitin Sodium 1 gm/ Premix 50 mls @ 100 mls/hr IV ONETIME YESSI Cefoxitin Sodium 1 gm/ Premix 50 mls @ 100 mls/hr IV ONETIME ONE Stop: 01/31/18 10:29 Last Admin: 01/31/18 10:27 Dose: 100 mls/hr Ciprofloxacin/Dextrose 400 mg/ (Premix) 200 mls @ 200 mls/hr IV Q12H [facility] Last Admin: 02/02/18 10:32 Dose: 200 mls/hr Metronidazole 500 mg/ Premix 100 mls @ 100 mls/hr IV QID [facility] Last Admin: 02/02/18 05:14 Dose: 100 mls/hr Ibuprofen (Motrin) 400 mg PO Q6H PRN PRN Reason: Pain (mild 1-3) Last Admin: 02/02/18 08:04 Dose: 400 mg Ketorolac Tromethamine (Toradol) 30 mg IVPUSH ONETIME ONE Stop: 01/31/18 08:31 Last Admin: 01/31/18 08:40 Dose: 30 mg Morphine Sulfate (Morphine) 2 mg IVPUSH Q2H PRN PRN Reason: Pain (severe 7-10) Stop: 02/01/18 11:16 Last Admin: 01/31/18 19:18 Dose: 2 mg - Exam General: Alert, Oriented, Cooperative, No Acute Distress HEENT: Pupils Equal, Pupils Reactive, EOMI. No: Scleral Icterus Neck: Supple Lungs: Clear to Auscultation, Normal Respiratory Effort Cardiovascular: Regular Rate, Regular Rhythm. No: Tachycardia GI/Abdominal Exam: Normal Bowel Sounds, Soft, Non-Tender, No Distention, No Mass (Male) Exam: No Hernia Back Exam: Normal Inspection, Full Range of Motion Extremities: Normal Inspection, Normal Range of Motion, Non-Tender, No Pedal Edema, Normal Capillary Refill Skin: Warm, Dry, Intact Neurological: No New Focal Deficit, Normal Gait Psy/Mental Status: Alert, Normal Affect, Normal Mood Consult PN Assessment/Plan (1) Cholelithiasis and acute cholecystitis without obstruction SNOMED Code(s): 30825458 Code(s): K80.00 - CALCULUS OF GALLBLADDER W ACUTE CHOLECYST W/O OBSTRUCTION Priority: High Current Visit: Yes Problem List Initiated/Reviewed/Updated: Yes Plan: Clinically patient continues to do well. Rates pain "3-4". Has not used any analgesics. Note WBC remains 15K. IMPRESSION: Stable despite persistent leucocytosis. RECOMMENDATION: Trial of low fat diet. If no recurrence of pain, despite leucocytosis, would consider discharge on oral antibiotics and followup with general surgery either here or in [place] for interval cholecystectomy.
--- NOTE | 2018-02-03 09:42 | PCM.PN ---
- General Info Date of Service: 02/03/18 - Review of Systems Systems Review Comment:: reports subjective fevers, abdomen is sore. - Patient Data Vitals - Most Recent: Last Vital Signs Temp 37.2 C 02/03/18 08:00 Pulse 92 02/03/18 08:00 Resp 18 02/03/18 08:00 BP 125/72 02/03/18 08:00 Pulse Ox 94 L 02/03/18 08:00 Weight - Most Recent: 65.408 kg I&O - Last 24 Hours: Intake & Output 02/02/18 02/03/18 02/03/18 22:59 06:59 14:59 Intake Total 1547 2031 Output Total 1410 1275 Balance 137 756 Lab Results Last 24 Hours: Laboratory Results - last 24 hr 02/03/18 Range/Units 05:44 WBC 15.24 H (4.0-11.0) K/uL RBC 4.55 (4.50-5.90) M/uL Hgb 13.3 (13.0-17.0) g/dL Hct 39.3 (38.0-50.0) % MCV 86.4 (80.0-98.0) fL MCH 29.2 (27.0-32.0) pg MCHC 33.8 (31.0-37.0) g/dL RDW Std Deviation 41.5 (28.0-62.0) fl RDW Coeff of [place] 13 (11.0-15.0) % Plt Count 299 (150-400) K/uL MPV 10.20 (7.40-12.00) fL Neut % (Auto) 81.6 H (48.0-80.0) % Lymph % (Auto) 8.1 L (16.0-40.0) % [place] % (Auto) 9.4 (0.0-15.0) % Eos % (Auto) 0.8 (0.0-7.0) % Baso % (Auto) 0.1 (0.0-1.5) % Neut # (Auto) 12.4 H (1.4-5.7) K/uL Lymph # (Auto) 1.2 (0.6-2.4) K/uL [place] # (Auto) 1.4 H (0.0-0.8) K/uL Eos # (Auto) 0.1 (0.0-0.7) K/uL Baso # (Auto) 0.0 (0.0-0.1) K/uL Nucleated RBC % 0.0 /100WBC Nucleated RBCs # 0 K/uL Alvin Results Last 24 Hours: Microbiology 01/31/18 09:04 Aerobic Blood Culture - Preliminary Blood - Venous - Lab Draw NO GROWTH AFTER 3 DAYS Anaerobic Blood Culture - Preliminary NO GROWTH AFTER 3 DAYS 01/31/18 08:50 Aerobic Blood Culture - Preliminary Blood - Venous NO GROWTH AFTER 3 DAYS Anaerobic Blood Culture - Preliminary NO GROWTH AFTER 3 DAYS Med Orders - Current: Current Medications Sodium Chloride (Normal Saline) 1,000 mls @ 100 mls/hr IV ASDIRECTED [facility] Last Admin: 02/03/18 01:48 Dose: 100 mls/hr Piperacillin Sod/Tazobactam (Sod 3.375 gm/ Sodium Chloride) 50 mls @ 100 mls/ hr IV Q6H [facility] Last Admin: 02/03/18 04:05 Dose: 100 mls/hr Ibuprofen (Motrin) 400 mg PO Q6H PRN PRN Reason: Pain Last Admin: 02/02/18 20:43 Dose: 400 mg Ondansetron HCl (Zofran) 4 mg IVPUSH Q4H PRN PRN Reason: Nausea Discontinued Medications Sodium Chloride (Normal Saline) 1,000 mls @ 999 mls/hr IV .Bolus ONE Stop: 01/31/18 09:30 Last Admin: 01/31/18 08:40 Dose: 999 mls/hr Cefoxitin Sodium 1 gm/ Sodium (Chloride) 50 mls @ 100 mls/hr IV ONETIME ONE Stop: 01/31/18 09:07 Last Admin: 01/31/18 11:22 Dose: Not Given Metronidazole 500 mg/ Premix 100 mls @ 100 mls/hr IV ONETIME ONE Stop: 01/31/18 09:37 Last Admin: 01/31/18 09:09 Dose: 100 mls/hr Cefoxitin Sodium 1 gm/ Premix 50 mls @ 100 mls/hr IV ONETIME [facility] Cefoxitin Sodium 1 gm/ Premix 50 mls @ 100 mls/hr IV ONETIME ONE Stop: 01/31/18 10:29 Last Admin: 01/31/18 10:27 Dose: 100 mls/hr Ciprofloxacin/Dextrose 400 mg/ (Premix) 200 mls @ 200 mls/hr IV Q12H [facility] Last Admin: 02/02/18 10:32 Dose: 200 mls/hr Metronidazole 500 mg/ Premix 100 mls @ 100 mls/hr IV QID [facility] Last Admin: 02/02/18 05:14 Dose: 100 mls/hr Ibuprofen (Motrin) 400 mg PO Q6H PRN PRN Reason: Pain (mild 1-3) Last Admin: 02/02/18 08:04 Dose: 400 mg Ketorolac Tromethamine (Toradol) 30 mg IVPUSH ONETIME ONE Stop: 01/31/18 08:31 Last Admin: 01/31/18 08:40 Dose: 30 mg Morphine Sulfate (Morphine) 2 mg IVPUSH Q2H PRN PRN Reason: Pain (severe 7-10) Stop: 02/01/18 11:16 Last Admin: 01/31/18 19:18 Dose: 2 mg - Exam General: Alert, Oriented Neck: Supple Lungs: Clear to Auscultation, Normal Respiratory Effort Cardiovascular: Regular Rate GI/Abdominal Exam: Normal Bowel Sounds, Soft, Non-Tender Extremities: Non-Tender, No Pedal Edema Skin: Warm, Dry, Intact - Problem List Review Problem List Initiated/Reviewed/Updated: Yes - My Orders Last 24 Hours: My Active Orders 02/03/18 05:11 COMPREHENSIVE METABOLIC PN,CMP [CHEM] AM 02/04/18 05:11 COMPREHENSIVE METABOLIC PN,CMP [CHEM] AM 02/05/18 05:11 COMPREHENSIVE METABOLIC PN,CMP [CHEM] AM - Plan Plan:: 43 yo male with acute cholecystitis. Dr eagle has been consulted. Patient with persistent leukocytosis. We will continue IV antibiotics on low fat diet.
[2018-02-03 10:25] LABS: CHLORIDE,CL 105 mmol/L (98-107); SODIUM,NA 138 mmol/L (136-148)
[2018-02-04] MEDS: Piperacillin/Tazobactam 3.375 GM in Sodium Chloride 0.9% 50 ML IV SCH ×2 (05:09→10:27)
[2018-02-04 06:07] LABS: CHLORIDE,CL 105 mmol/L (98-107); SODIUM,NA 138 mmol/L (136-148)
--- NOTE | 2018-02-04 11:12 | PCM.DCSUM1 ---
Discharge Summary - Hospital Course Free Text/Narrative:: Admission date: 01/31/2018 Discharge date: 02/04/2018 Admission diagnosis: #1. Acute calculous cholecystitis #2. Leukocytosis #3. abdominal pain Discharge diagnosis: #1. Acute calculous cholecystitis #2. Leukocytosis #3. abdominal pain Hospital course: 43M with no significant past mhx presented to the ER with a CC of intermittent worsening RUQ abdominal pain that had been going on for the past few weeks. He was noted on US to have a gallstone in the neck of the bladder and cholecystitis. He was put NPO, consulted surgery for and started IV flagyl, ciprofloxacin. As per surgery, they recommended that IV antibiotics be continued and plan for cholecystectomy in 6 weeks as an outpatient. Patients leukocytosis was persistent, so he was switched to IV Zosyn. WBC came down from 15k - 14k. His pain had resolved, he was afebrile and tolerating a low fat diet without any difficulty. I spoke to Dr. Oneal about the case, who agreed with discharge. He is sent home on 10 days of PO Augmentin and advised to f/u with Dr. Goins within [address] Oneal recommendation. Patient was advised to return if abdominal pain, nausea, fever occurs. - Discharge Data Discharge Date: 02/04/18 Discharge Disposition: Home, Self-Care 01 Condition: Fair - Patient Summary/Data Consults: Consultations 01/31/18 08:50 Consult to Physician [CONS] Stat - Patient Instructions Diet, Other: low fat diet Activity: As Tolerated Driving: May Drive Today Showering/Bathing: May Shower Notify Provider of: Fever, Increased Pain, Swelling and Redness, Drainage, Nausea and/or Vomiting - Discharge Plan Prescriptions/Med Rec: Amoxicillin/Potassium Clav [Augmentin 875-125 Tablet] 1 each PO Q12H 10 Days # 20 tablet Home Medications: Home Meds Amoxicillin/Potassium Clav [Augmentin 875-125 Tablet] 1 each PO Q12H 10 Days # 20 tablet 02/04/18 [Rx] Patient Handouts: Cholelithiasis, [id number] Referrals: Donavon Goins MD [Physician] - Fredy Crouch MD [Resident] - - Discharge Summary/Plan Comment Discharge Summary/Plan Comment: Admission date: 01/31/2018 Discharge date: 02/04/2018 Admission diagnosis: #1. Acute calculous cholecystitis #2. Leukocytosis #3. abdominal pain Discharge diagnosis: #1. Acute calculous cholecystitis #2. Leukocytosis #3. abdominal pain Hospital course: 43M with no significant past mhx presented to the ER with a CC of intermittent worsening RUQ abdominal pain that had been going on for the past few weeks. He was noted on US to have a gallstone in the neck of the bladder and cholecystitis. He was put NPO, consulted surgery for and started IV flagyl, ciprofloxacin. As per surgery, they recommended that IV antibiotics be continued and plan for cholecystectomy in 6 weeks as an outpatient. Patients leukocytosis was persistent, so he was switched to IV Zosyn. WBC came down from 15k - 14k. His pain had resolved, he was afebrile and tolerating a low fat diet without any difficulty. I spoke to Dr. Oneal about the case, who agreed with discharge. He is sent home on 10 days of PO Augmentin and advised to f/u with Dr. Goins within [address] Oneal recommendation. Patient was advised to return if abdominal pain, nausea, fever occurs. - Patient Data Vitals - Most Recent: Last Vital Signs Temp 36.8 C 02/04/18 08:00 Pulse 99 02/04/18 08:00 Resp 16 02/04/18 08:00 BP 133/78 02/04/18 08:00 Pulse Ox 94 L 02/04/18 08:00 Weight - Most Recent: 65.408 kg I&O - Last 24 hours: Intake & Output 02/03/18 02/04/18 02/04/18 22:59 06:59 14:59 Intake Total 500 1805 Output Total 350 920 Balance 150 885 Lab Results - Last 24 hrs: Laboratory Results - last 24 hr 02/04/18 02/04/18 Range/Units 05:36 05:36 WBC 14.53 H (4.0-11.0) K/uL RBC 4.59 (4.50-5.90) M/uL Hgb 13.4 (13.0-17.0) g/dL Hct 38.9 (38.0-50.0) % MCV 84.7 (80.0-98.0) fL MCH 29.2 (27.0-32.0) pg MCHC 34.4 (31.0-37.0) g/dL RDW Std Deviation 39.0 (28.0-62.0) fl RDW Coeff of [place] 13 (11.0-15.0) % Plt Count 301 (150-400) K/uL MPV 9.80 (7.40-12.00) fL Neut % (Auto) 81.2 H (48.0-80.0) % Lymph % (Auto) 7.2 L (16.0-40.0) % [place] % (Auto) 10.9 (0.0-15.0) % Eos % (Auto) 0.6 (0.0-7.0) % Baso % (Auto) 0.1 (0.0-1.5) % Neut # (Auto) 11.8 H (1.4-5.7) K/uL Lymph # (Auto) 1.0 (0.6-2.4) K/uL [place] # (Auto) 1.6 H (0.0-0.8) K/uL Eos # (Auto) 0.1 (0.0-0.7) K/uL Baso # (Auto) 0.0 (0.0-0.1) K/uL Nucleated RBC % 0.0 /100WBC Nucleated RBCs # 0 K/uL Sodium 138 (136-148) mmol/L Potassium 4.1 (3.5-5.1) mmol/L Chloride 105 (98-107) mmol/L Carbon Dioxide 24.5 (21.0-32.0) mmol/L BUN 10 (7.0-18.0) mg/dL Creatinine 0.9 (0.8-1.3) mg/dL Est Cr Clr Drug Dosing 96.90 mL/min Estimated GFR (MDRD) > 60.0 ml/min Glucose 109 H (74-106) mg/dL Calcium 8.0 L (8.5-10.1) mg/dL Total Bilirubin 0.8 (0.2-1.0) mg/dL AST 22 (15-37) IU/L ALT 12 L (14-63) IU/L Alkaline Phosphatase 86 (46-116) U/L Total Protein 7.0 (6.4-8.2) g/dL Albumin 2.6 L (3.4-5.0) g/dL Globulin 4.4 H (2.0-3.5) g/dL Albumin/Globulin Ratio 0.6 L (1.3-2.8) MARISOL Results - Last 24 hrs: Microbiology 01/31/18 09:04 Aerobic Blood Culture - Preliminary Blood - Venous - Lab Draw NO GROWTH AFTER 4 DAYS Anaerobic Blood Culture - Preliminary NO GROWTH AFTER 4 DAYS 01/31/18 08:50 Aerobic Blood Culture - Preliminary Blood - Venous NO GROWTH AFTER 4 DAYS Anaerobic Blood Culture - Preliminary NO GROWTH AFTER 4 DAYS Med Orders - Current: Current Medications Sodium Chloride (Normal Saline) 1,000 mls @ 100 mls/hr IV ASDIRECTED [facility] Last Admin: 02/03/18 23:57 Dose: 100 mls/hr Piperacillin Sod/Tazobactam (Sod 3.375 gm/ Sodium Chloride) 50 mls @ 100 mls/ hr IV Q6H [facility] Last Admin: 02/04/18 10:27 Dose: 100 mls/hr Ibuprofen (Motrin) 400 mg PO Q6H PRN PRN Reason: Pain Last Admin: 02/02/18 20:43 Dose: 400 mg Ondansetron HCl (Zofran) 4 mg IVPUSH Q4H PRN PRN Reason: Nausea Discontinued Medications Sodium Chloride (Normal Saline) 1,000 mls @ 999 mls/hr IV .Bolus ONE Stop: 01/31/18 09:30 Last Admin: 01/31/18 08:40 Dose: 999 mls/hr Cefoxitin Sodium 1 gm/ Sodium (Chloride) 50 mls @ 100 mls/hr IV ONETIME ONE Stop: 01/31/18 09:07 Last Admin: 01/31/18 11:22 Dose: Not Given Metronidazole 500 mg/ Premix 100 mls @ 100 mls/hr IV ONETIME ONE Stop: 01/31/18 09:37 Last Admin: 01/31/18 09:09 Dose: 100 mls/hr Cefoxitin Sodium 1 gm/ Premix 50 mls @ 100 mls/hr IV ONETIME [facility] Cefoxitin Sodium 1 gm/ Premix 50 mls @ 100 mls/hr IV ONETIME ONE Stop: 01/31/18 10:29 Last Admin: 01/31/18 10:27 Dose: 100 mls/hr Ciprofloxacin/Dextrose 400 mg/ (Premix) 200 mls @ 200 mls/hr IV Q12H [facility] Last Admin: 02/02/18 10:32 Dose: 200 mls/hr Metronidazole 500 mg/ Premix 100 mls @ 100 mls/hr IV QID [facility]ESSI Last Admin: 02/02/18 05:14 Dose: 100 mls/hr Ibuprofen (Motrin) 400 mg PO Q6H PRN PRN Reason: Pain (mild 1-3) Last Admin: 02/02/18 08:04 Dose: 400 mg Ketorolac Tromethamine (Toradol) 30 mg IVPUSH ONETIME ONE Stop: 01/31/18 08:31 Last Admin: 01/31/18 08:40 Dose: 30 mg Morphine Sulfate (Morphine) 2 mg IVPUSH Q2H PRN PRN Reason: Pain (severe 7-10) Stop: 02/01/18 11:16 Last Admin: 01/31/18 19:18 Dose: 2 mg
== END 2018-02-04 13:00 | disposition home or self-care (01) | DRG 446 ==
LOC: MW.ED 06:49 → MW.MS 08:49
PROVIDERS: ADMIT Internal Medicine; ATTEND Internal Medicine
DX: K80.00 Calculus of gallbladder with acute cholecystitis without obstruction (principal); D72.829 Elevated white blood cell count, unspecified; R50.9 Fever, unspecified
CPT/HCPCS: 36415; 76705; 76705-26; 80048; 80053; 83690; 85025; 87040; 96361; 96365; 96375; 99283; 99285-25; A9270-GY; J0694; J0744; J1885; J2270; J2543; J7040; J7050